=== PATIENT | female | born 1990 | race Caucasian/White ===

== ENCOUNTER 2023-05-01 10:21 | Emergency (ER) | payer OTHER ==
[2023-05-01] MEDS ORDERED: Lidocaine 1% (PF) 30 ML VIAL ONE (12:39)
== END 2023-05-01 12:45 | disposition home or self-care (01) ==
LOC: CSHERS 10:21
DX: M70.42 Prepatellar bursitis, left knee (principal); W18.30XA Fall on same level, unspecified, initial encounter
CPT/HCPCS: J2001